=== PATIENT | male | born 2000 | race Hispanic/Latino ===

== ENCOUNTER 2022-01-06 20:10 | Emergency (ER) | payer BC, SELFPAY ==
[2022-01-06] MEDS ORDERED: Ondansetron ODT 4 MG TAB ONE (20:54)
== END 2022-01-06 21:49 | disposition home or self-care (01) ==
LOC: CSHERS 20:10
DX: R11.2 Nausea with vomiting, unspecified (principal)
CPT/HCPCS: 87804; 99284; Q0162